=== PATIENT | female | born 1975 | race Caucasian/White ===

== ENCOUNTER 2017-01-22 15:13 | Emergency (ER) | payer OTHER | END 2017-01-22 16:18 | disposition home or self-care (01) | LOC: ER 15:13 | DX: M54.5 Low back pain (principal); W19.XXXA Unspecified fall, initial encounter; Y92.002 Bathroom of unspecified non-institutional (private) residence as the place of occurrence of the external cause; Z79.899 Other long term (current) drug therapy; Z88.5 Allergy status to narcotic agent; Z88.8 Allergy status to other drugs, medicaments and biological substances ==

== ENCOUNTER 2017-01-27 02:26 | Emergency (ER) | payer OTHER ==
[2017-01-27 03:42] LABS: URINE BILIRUBIN NEGATIVE (NEGATIVE); URINE BLOOD NEGATIVE (NEGATIVE); URINE GLUCOSE (UA) NORMAL (NORMAL); URINE KETONE NEGATIVE (NEGATIVE); URINE LEUKOCYTE ESTERASE TRACE (NEGATIVE); URINE NITRATE NEGATIVE (NEGATIVE); URINE PROTEIN NEGATIVE (NEGATIVE); UROBILINOGEN NORMAL mg/dL (<1.0)
[2017-01-27 03:52] LABS: URINE BACTERIA 2+ (NONE SEEN); URINE RBC 0-5 /[HPF] (0-2)
== END 2017-01-27 06:18 | disposition home or self-care (01) ==
LOC: ER 02:26
PROVIDERS: Emergency Medicine
DX: N39.0 Urinary tract infection, site not specified (principal); R51 Headache; R10.9 Unspecified abdominal pain; E11.9 Type 2 diabetes mellitus without complications; I10 Essential (primary) hypertension; R11.2 Nausea with vomiting, unspecified; Z79.899 Other long term (current) drug therapy; Z79.84 Long term (current) use of oral hypoglycemic drugs; Z88.5 Allergy status to narcotic agent; Z88.8 Allergy status to other drugs, medicaments and biological substances
CPT/HCPCS: 81001; 81025; 87086; 87186; 96372; 99070; 99284-25

== ENCOUNTER 2017-02-28 20:42 | Emergency (ER) | payer OTHER | END 2017-03-01 04:08 | disposition home or self-care (01) | LOC: ER 20:42 | DX: M54.5 Low back pain (principal); R32 Unspecified urinary incontinence; G89.29 Other chronic pain; E11.9 Type 2 diabetes mellitus without complications; I10 Essential (primary) hypertension; F41.9 Anxiety disorder, unspecified; F17.210 Nicotine dependence, cigarettes, uncomplicated; Z79.899 Other long term (current) drug therapy; Z79.84 Long term (current) use of oral hypoglycemic drugs; Z88.5 Allergy status to narcotic agent; Z88.8 Allergy status to other drugs, medicaments and biological substances | CPT/HCPCS: 96372; 99282-25 ==

== ENCOUNTER 2017-03-30 11:22 | Inpatient (IN) | payer OTHER ==
[~2017-03-30] VITALS: Ht 157.5 cm; Wt 110.0 kg
[2017-03-30 12:14] LABS: URINE BILIRUBIN NEGATIVE (NEGATIVE); URINE BLOOD NEGATIVE (NEGATIVE); URINE GLUCOSE (UA) NORMAL (NORMAL); URINE KETONE TRACE (NEGATIVE); URINE LEUKOCYTE ESTERASE TRACE (NEGATIVE); URINE NITRATE NEGATIVE (NEGATIVE); URINE PROTEIN 2+ (NEGATIVE)
[2017-03-30 12:23] LABS: BASO % 0.3 % (0.1-1.2); EOS # 0.2 10_X3_uL (0.0-0.4); EOS % 1.6 % (0.7-5.8); GRAN # 7.9 10_X3_uL (1.6-6.1); GRAN % 75.6 % (34.0-71.1); HEMATOCRIT 48.9 % (34-45); HEMOGLOBIN 16.8 g/dL (11.2-15.7); MEAN CORPUSCULAR HEMOGLOBIN 24.8 pg (27.0-33.0); MEAN CORPUSCULAR HGB CONC 34.4 g/dL (32.0-36.0); MEAN CORPUSCULAR VOLUME 72.1 fL (79-95); MEAN PLATELET VOLUME 9.5 fl (7.5-11.5); MONO # 0.4 10_X3_uL (0.2-0.9); MONO % 3.5 % (4.7-12.5); PLATELET COUNT 378 x10_3/uL (182-369); RED BLOOD COUNT 6.78 x10_6/uL (3.9-5.2); RED CELL DISTRIBUTION WIDTH 16.1 % (11.7-14.4); WHITE BLOOD COUNT 10.5 x10_3/uL (4.0-10.0)
[2017-03-30 12:24] LABS: URINE RBC 0-5 /[HPF] (0-2); URINE SQUAMOUS EPITHELIAL CELL 0-10 /[HPF] (NONE SEEN); URINE WBC 0-5 /[HPF] (0-5)
[2017-03-30 12:25] LABS: URINE AMORPHOUS SEDIMENT 1+; URINE BACTERIA 1+ (NONE SEEN); URINE MUCUS TRACE
[2017-03-30 12:36] LABS: ALBUMIN 5.1 gm/dL (3.4-5.0); ALKALINE PHOSPHATASE 71 U/L (50-136); ALT/SGPT 21 U/L (3.5-33.9); AMYLASE 77 U/L (15.62-74.58); AST/SGOT 23 U/L (7.04-26.96); BILIRUBIN,TOTAL 0.44 mg/dL (0.0-1.0); BLOOD UREA NITROGEN 13 mg/dL (7-18); CALCIUM 10.1 mg/dL (8.7-10.7); CARBON DIOXIDE 23 mmol/L (21-32); GLUCOSE,RANDOM 167 mg/dL (70-99); LIPASE 44 U/L (6.75-60.75); POTASSIUM 3.9 mmol/L (3.5-5.1); SODIUM 136 mmol/L (136-145); TOTAL PROTEIN 8.7 gm/dL (6.4-8.2)
[2017-03-31 06:45] LABS: BASO % 0.2 % (0.1-1.2); EOS # 0.1 10_X3_uL (0.0-0.4); EOS % 0.8 % (0.7-5.8); GRAN # 6.5 10_X3_uL (1.6-6.1); GRAN % 60.9 % (34.0-71.1); HEMATOCRIT 45.3 % (34-45); HEMOGLOBIN 15.6 g/dL (11.2-15.7); LYMPH # 3.1 10_X3_uL (1.2-3.7); LYMPH % 29.3 % (19.3-51.7); MEAN CORPUSCULAR HEMOGLOBIN 25.1 pg (27.0-33.0); MEAN CORPUSCULAR HGB CONC 34.4 g/dL (32.0-36.0); MEAN CORPUSCULAR VOLUME 72.9 fL (79-95); MEAN PLATELET VOLUME 9.3 fl (7.5-11.5); MONO # 0.9 10_X3_uL (0.2-0.9); MONO % 8.8 % (4.7-12.5); PLATELET COUNT 337 x10_3/uL (182-369); RED BLOOD COUNT 6.21 x10_6/uL (3.9-5.2); RED CELL DISTRIBUTION WIDTH 15.3 % (11.7-14.4); WHITE BLOOD COUNT 10.6 x10_3/uL (4.0-10.0)
[2017-03-31 06:49] LABS: AHDL CHOLESTEROL 36 mg/dL (>40); BLOOD UREA NITROGEN 13 mg/dL (7-18); CALCIUM 9.4 mg/dL (8.7-10.7); CARBON DIOXIDE 23 mmol/L (21-32); CHOLESTEROL 221 mg/dL (0-200); CREATININE 0.9 mg/dL (0.6-1.3); GLUCOSE,RANDOM 123 mg/dL (70-99); LDL CHOLESTEROL 147 mg/dL (0-99); POTASSIUM 3.5 mmol/L (3.5-5.1); SODIUM 138 mmol/L (136-145); TRIGLYCERIDES 282 mg/dL (30-200)
[2017-04-01 06:53] LABS: HEMATOCRIT 39.6 % (34-45); HEMOGLOBIN 13.1 g/dL (11.2-15.7); MEAN CORPUSCULAR HEMOGLOBIN 24.6 pg (27.0-33.0); MEAN CORPUSCULAR HGB CONC 33.1 g/dL (32.0-36.0); MEAN CORPUSCULAR VOLUME 74.4 fL (79-95); MEAN PLATELET VOLUME 9.3 fl (7.5-11.5); RED BLOOD COUNT 5.32 x10_6/uL (3.9-5.2); RED CELL DISTRIBUTION WIDTH 14.9 % (11.7-14.4); WHITE BLOOD COUNT 6.9 x10_3/uL (4.0-10.0)
[2017-04-01 07:09] LABS: BLOOD UREA NITROGEN 10 mg/dL (7-18); CALCIUM 8.5 mg/dL (8.7-10.7); CARBON DIOXIDE 24 mmol/L (21-32); CREATININE 0.8 mg/dL (0.6-1.3); GLUCOSE,RANDOM 105 mg/dL (70-99); MAGNESIUM 2.2 mg/dL (1.8-2.4); POTASSIUM 3.3 mmol/L (3.5-5.1); SODIUM 138 mmol/L (136-145)
[2017-04-02 07:03] LABS: HEMATOCRIT 42.2 % (34-45); HEMOGLOBIN 14.5 g/dL (11.2-15.7); MEAN CORPUSCULAR HGB CONC 34.4 g/dL (32.0-36.0); MEAN CORPUSCULAR VOLUME 72.6 fL (79-95); RED BLOOD COUNT 5.81 x10_6/uL (3.9-5.2); RED CELL DISTRIBUTION WIDTH 14.5 % (11.7-14.4); WHITE BLOOD COUNT 6.5 x10_3/uL (4.0-10.0)
[2017-04-02 07:19] LABS: ALBUMIN 4.1 gm/dL (3.4-5.0); ALKALINE PHOSPHATASE 59 U/L (50-136); ALT/SGPT 25 U/L (3.5-33.9); AMYLASE 65 U/L (15.62-74.58); AST/SGOT 29 U/L (7.04-26.96); BILIRUBIN,TOTAL 0.49 mg/dL (0.0-1.0); CALCIUM 9.1 mg/dL (8.7-10.7); CARBON DIOXIDE 24 mmol/L (21-32); CREATININE 0.8 mg/dL (0.6-1.3); GLUCOSE,RANDOM 127 mg/dL (70-99); LIPASE 43 U/L (6.75-60.75); POTASSIUM 3.4 mmol/L (3.5-5.1); SODIUM 138 mmol/L (136-145); TOTAL PROTEIN 7.2 gm/dL (6.4-8.2)
[2017-04-02 07:21] LABS: BLOOD UREA NITROGEN 7 mg/dL (7-18)
--- NOTE | 2017-04-02 15:36 | NUR ---
PT TAKEN TO OR PER WHEELCHAIR FOR LAP. BALDEMAR. TAKEN PER DEANDRE CORTEZ RN.
--- NOTE | 2017-04-02 15:38 | NUR ---
1246 PT BACK TO ROOM. PT IV PATENT AND PT ASSESSED. LUNGS CLEAR. ABD SOFT WITH POSITIVE BOWEL SOUNDS X 4 QUADS. X 4 INCISIONS WITH STERI STRIPS INTACT AND NO BLEEDING NOTED.
[2017-04-03 07:23] LABS: ALBUMIN 3.9 gm/dL (3.4-5.0); ALKALINE PHOSPHATASE 54 U/L (50-136); ALT/SGPT 50 U/L (3.5-33.9); AST/SGOT 63 U/L (7.04-26.96); BILIRUBIN,TOTAL 0.47 mg/dL (0.0-1.0); BLOOD UREA NITROGEN 8 mg/dL (7-18); CALCIUM 9.2 mg/dL (8.7-10.7); CARBON DIOXIDE 21 mmol/L (21-32); CREATININE 0.8 mg/dL (0.6-1.3); GLUCOSE,RANDOM 126 mg/dL (70-99); POTASSIUM 3.9 mmol/L (3.5-5.1); SODIUM 135 mmol/L (136-145); TOTAL PROTEIN 6.8 gm/dL (6.4-8.2)
[2017-04-03 07:53] LABS: HEMATOCRIT 41.7 % (34-45); HEMOGLOBIN 13.7 g/dL (11.2-15.7); MEAN CORPUSCULAR HEMOGLOBIN 24.7 pg (27.0-33.0); MEAN CORPUSCULAR HGB CONC 32.9 g/dL (32.0-36.0); RED BLOOD COUNT 5.53 x10_6/uL (3.9-5.2); WHITE BLOOD COUNT 9.3 x10_3/uL (4.0-10.0)
[2017-04-03 07:54] LABS: MEAN CORPUSCULAR VOLUME 75.4 fL (79-95); PLATELET COUNT 261 x10_3/uL (182-369)
== END 2017-04-03 10:41 | disposition home or self-care (01) | DRG 989 ==
LOC: ER 11:22 → MS 14:46 → UNDODEPER 03-31 14:17 → MS 04-01 10:42
PROVIDERS: Emergency Medicine; Family Medicine; ADMIT Family Medicine
PROC: 0FT44ZZ Resection of Gallbladder, Percutaneous Endoscopic Approach (ICD-10-PCS; principal; 2017-04-02)
DX: N39.0 Urinary tract infection, site not specified (principal); B96.20 Unspecified Escherichia coli [E. coli] as the cause of diseases classified elsewhere; R10.13 Epigastric pain; R10.11 Right upper quadrant pain; K81.9 Cholecystitis, unspecified; F41.9 Anxiety disorder, unspecified; G62.9 Polyneuropathy, unspecified; G43.909 Migraine, unspecified, not intractable, without status migrainosus; I10 Essential (primary) hypertension; E11.9 Type 2 diabetes mellitus without complications; K29.50 Unspecified chronic gastritis without bleeding; B96.81 Helicobacter pylori [H. pylori] as the cause of diseases classified elsewhere; D25.9 Leiomyoma of uterus, unspecified; R91.8 Other nonspecific abnormal finding of lung field; Z88.5 Allergy status to narcotic agent; Z88.8 Allergy status to other drugs, medicaments and biological substances; E86.0 Dehydration; R11.2 Nausea with vomiting, unspecified; J44.9 Chronic obstructive pulmonary disease, unspecified; Z79.899 Other long term (current) drug therapy; Z79.84 Long term (current) use of oral hypoglycemic drugs
CPT/HCPCS: 36415; 76705; 78227; 80048; 80053; 80061; 81001; 81025; 82150; 82962; 83036; 83690; 83735; 85025; 87086; 87186; 93005; 94664; 96361; 96374; 96375; 96376; 99070; 99285-25; A9537; J1885; J2704; J2710; J2765; J3010; Q0169

== ENCOUNTER 2017-03-30 11:22 | Observation (INO) | payer OTHER | END 2017-04-01 10:42 | disposition other institution (70) | LOC: ER 11:22 → MS 14:46 → ER 14:46 → MS 04-01 10:42 | PROVIDERS: ADMIT Family Medicine | PROC: 0DB78ZX Excision of Stomach, Pylorus, Via Natural or Artificial Opening Endoscopic, Diagnostic (ICD-10-PCS; principal; 2017-03-31) | DX: R11.2 Nausea with vomiting, unspecified (principal); R10.11 Right upper quadrant pain; R10.13 Epigastric pain; E11.9 Type 2 diabetes mellitus without complications; I10 Essential (primary) hypertension; G43.909 Migraine, unspecified, not intractable, without status migrainosus; M54.9 Dorsalgia, unspecified; G89.29 Other chronic pain; Z98.890 Other specified postprocedural states; F41.9 Anxiety disorder, unspecified; G62.9 Polyneuropathy, unspecified; R91.8 Other nonspecific abnormal finding of lung field; D25.9 Leiomyoma of uterus, unspecified; J44.9 Chronic obstructive pulmonary disease, unspecified; Z88.5 Allergy status to narcotic agent; Z88.8 Allergy status to other drugs, medicaments and biological substances; Z79.899 Other long term (current) drug therapy; Z79.84 Long term (current) use of oral hypoglycemic drugs | CPT/HCPCS: 36415; 76705; 78227; 80048; 80053; 80061; 81001; 81025; 82150; 82962; 83036; 83690; 83735; 85025; 87086; 87186; 93005; 94664; 96361; 96374; 96375; 96376; 99070; 99285-25; G0378; J2704; J2765; J3010; Q0169 ==